=== PATIENT | female | born 1995 | race Caucasian/White ===

== ENCOUNTER 2022-11-09 12:44 | Emergency (ER) | payer BC | END 2022-11-09 16:37 | disposition home or self-care (01) | LOC: JD.ED 12:44 | DX: O20.9 Hemorrhage in early pregnancy, unspecified (principal); Z3A.01 Less than 8 weeks gestation of pregnancy | CPT/HCPCS: 36415; 76817; 76817-26; 81001; 84702; 85025; 86900; 86901; 99283; 99284 ==

== ENCOUNTER 2023-12-10 06:53 | Inpatient (IN) | payer BC ==
[2023-12-10] MEDS ORDERED: Lidocaine 1% 50 ML MDV INJECT PRN (06:59)
[2023-12-10] MEDS ORDERED: Nalbuphine 10 MG/ML Syringe IVPUSH PRN (06:59)
[2023-12-10] MEDS ORDERED: Sodium Chloride 0.9% 10 ML Syringe FLUSH PRN (06:59)
[2023-12-10] MEDS ORDERED: Ondansetron 4 MG/2 ML SDV IVPUSH PRN (06:59)
[2023-12-10] MEDS ORDERED: Oxytocin/Lactated Ringers 30 UNIT/500 ML BAG IV SCH (07:00)
[2023-12-10] MEDS ORDERED: ePHEDrine 50 MG/ML SDV IVPUSH PRN (07:12)
[2023-12-10] MEDS ORDERED: fentaNYL 100 MCG/2 ML SDV EPIDUR PRN (07:12)
[2023-12-10] MEDS ORDERED: Bupivacaine/fentaNYL/NS 100 ML Bag EPIDUR PRN (07:12)
[2023-12-10] MEDS ORDERED: diphenhydrAMINE 50 MG/ML SDV IVPUSH PRN (07:12)
[2023-12-10 07:18] LABS: BASOPHILS PERCENT AUTO 0.3 % (0.0-1.0); EOSINOPHILS PERCENT AUTO 0.3 % (0.0-6.0); HEMATOCRIT 31.4 % (37.0-47.0); HEMOGLOBIN 10.6 gm/dl (12.0-16.0); IMMATURE GRAN ABSOLUTE AUTO 0.04 K/mm3 (0.00-0.05); IMMATURE GRAN PERCENT AUTO 0.5 % (0.0-0.4); LYMPHOCYTES ABSOLUTE AUTO 1.3 K/mm3 (1.0-4.8); LYMPHOCYTES PERCENT AUTO 17.6 % (24.0-44.0); MEAN CORPUSCULAR HEMOGLOBIN 30.7 pg (28.0-32.0); MEAN CORPUSCULAR HGB CONC 33.8 g/dl (32.0-36.0); MEAN PLATELET VOLUME 9.2 fl (9.4-12.3); MONOCYTES ABSOLUTE AUTO 0.4 K/mm3 (0.0-0.8); MONOCYTES PERCENT AUTO 5.2 % (0.0-8.0); NEUTROPHILS ABSOLUTE AUTO 5.6 K/mm3 (1.8-7.7); NEUTROPHILS PERCENT AUTO 76.1 % (41.0-71.0); PLATELET COUNT,PLT 201 K/mm3 (150-400); RED BLOOD CELL COUNT 3.45 M/mm3 (4.10-5.30); WHITE BLOOD CELL COUNT,WBC 7.34 K/mm3 (3.9-11.3)
[2023-12-10] MEDS: Lactated Ringers 1,000 ML IV SCH (11:45)
[2023-12-10] MEDS: Sodium Chloride 0.9% 10 ML Syringe FLUSH SCH (12:37)
[2023-12-10] MEDS: Oxytocin/Lactated Ringers 30 UNIT/500 ML BAG IV SCH (13:37)
[2023-12-10] MEDS ORDERED: Acetaminophen 325 MG Tab PO PRN (13:51)
[2023-12-10] MEDS ORDERED: Docusate Sodium 100 MG Cap PO PRN (13:51)
[2023-12-10] MEDS ORDERED: Ibuprofen 600 MG Tab PO PRN (13:51)
[2023-12-10] MEDS: Witch Hazel Medicated Pads 40/Jar TOP PRN (14:46)
[2023-12-10] MEDS: Benzocaine/Menthol 20%-0.5% Spray 78 GM Cannister TOP PRN (14:46)
== END 2023-12-11 15:31 | disposition home or self-care (01) | DRG 560 ==
LOC: JD.OB 06:53 → OBSVTOIN 13:35 → JD.OB 13:36
PROVIDERS: ADMIT Obstetrics & Gynecology; ATTEND Obstetrics & Gynecology
PROC: 10E0XZZ Delivery of Products of Conception, External Approach (ICD-10-PCS; principal; 2023-12-10)
PROC: 10907ZC Drainage of Amniotic Fluid, Therapeutic from Products of Conception, Via Natural or Artificial Opening (ICD-10-PCS; 2023-12-10)
DX: O70.0 First degree perineal laceration during delivery (principal); Z37.0 Single live birth; Z3A.39 39 weeks gestation of pregnancy; Z98.890 Other specified postprocedural states
CPT/HCPCS: 36415; 59025; 59409; 85025; 86592; 86850; 86900; 86901; J7120; J7999